=== PATIENT | female | born 1955 | race Caucasian/White ===

== ENCOUNTER → 2017-03-20 | Outpatient (CLI) | payer BC ==
--- NOTE | 2017-03-20 12:01 | CONS ---
DATE OF CONSULTATION: 03/20/2017 CONSULTATION/NEW PATIENT EVALUATION: A 61-year-old lady who has been evaluated in Sleep Center for possible obstructive sleep apnea-hypopnea syndrome. HISTORY OF PRESENT ILLNESS/SLEEP-WAKE EVALUATION: SLEEP SCHEDULE: Patient's usual sleep schedule on working days is from 7:30 a.m. until 3 p.m. 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 In the days off, she sleeps from around midnight until 9 a.m. FALLING ASLEEP: Usually she does not have any problem with falling asleep, actually in the time. No TV in bedroom. DURING SLEEP: She sleeps on the side position or stomach. She wakes up from sleep up to 3 times with nocturia and she moves from [id number] during the sleep all the time. According to her , she has loud snoring and episodes of stopped breathing during the sleep. Sometimes she wakes up with gasping for air. DURING THE DAY/WAKE STATE: After sleep, she wakes up tired. [place] Sleepiness Scale significantly increased to 16. No history hypnagogic hallucinations, sleep paralysis or cataplexy. PAST MEDICAL HISTORY: Positive for hypertension, hyperlipidemia, shoulder problems, more on the right side with feeling of numbness of her arms after sleep. PAST SURGICAL HISTORY: Status post back surgery, status post left shoulder surgery, status post cholecystectomy and status post C-sections x2 and status post heel surgery on the right foot 3 years ago. MEDICATIONS: Lovastatin, atenolol, Zestoretic, baby aspirin. SOCIAL HISTORY: Negative for smoking, alcohol consumption rarely. REVIEW OF SYSTEMS: Multiple awakenings from sleep, sleepiness during the day or night time when she is working, sometimes sleepiness while she is driving the car. FAMILY HISTORY: Hypertension, heart problems, hyperlipidemia, stroke, fibromyalgia, arthritis, sleep apnea, snoring, cancer, diabetes, anemia, mental illness, restless legs. During physical exam, lady without distress. BP 154/95, HR 76, RR 16. Height 66 inches. Weight 206.6. BMI 33.2. Neck 15 inches in circumference. Temperature 98.2. Oxygen saturation at room air 97%. Oropharynx extremely low position of soft palate, Mallampati 4. NECK: Supple. No JVD. Thyroid is not palpable. LUNGS: Clear to percussion and to auscultation. Good air exchange. No wheezing or rhonchi. HEART: S1, S2 regular. No murmurs, gallops or rubs. ABDOMEN: Soft and nontender. Bowel sounds are present. No organomegaly appreciated. SASH CLAMP OPERATOR: Awake, alert, and oriented x3. Cranial nerves 2 to 7 intact. There is no fasciculation or atrophy noted. No focal deficits observed. Extremities 1+ bilateral ankle edema. IMPRESSION: 1. Snoring, witnessed episodes of stopped breathing during the sleep, extremely low position of soft palate, sleepiness, multiple awakenings from sleep, obstructive sleep apnea-hypopnea syndrome. 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 3. Obesity; body mass index 33.2. 4. Hypertension, not on control on medications, presently blood is slightly increased during the office visit today. 5. Hyperlipidemia. 6. Status post left shoulder surgery. 7. Status post C-sections x2. 8. Status post cholecystectomy. 9. Status post back surgery. 10. Right shoulder problems. 11. Status post right foot surgery for the right heel surgery a few years ago. PLAN: 1. Home sleep apnea test for evaluation of patient's breathing during sleep. 2. CPAP/BiPAP titration if sleep study confirms obstructive sleep apnea-hypopnea syndrome. 3. Preferable position during sleep on the side. 4. No driving if patient feels any sleepiness. Patient is aware of civil and criminal liability for unsafe driving. 5. I will see patient for follow-up visit to explain results of the testing and following plan. Sincerely, Guy Krueger MD, PhD, FAASM. Diplomat of [place] [employer], Sleep Medicine Board by [place] [employer] [employer] Television Cabinet Finisher of [facility] [place]
== END ==
LOC: SLEEP 10:22
PROVIDERS: ATTEND Internal Medicine
DX: G47.33 Obstructive sleep apnea (adult) (pediatric) (principal); E66.9 Obesity, unspecified; I10 Essential (primary) hypertension; E78.5 Hyperlipidemia, unspecified; Z98.890 Other specified postprocedural states; Z90.49 Acquired absence of other specified parts of digestive tract; Z79.82 Long term (current) use of aspirin; Z79.899 Other long term (current) drug therapy; Z68.33 Body mass index [BMI] 33.0-33.9, adult
CPT/HCPCS: 99211

== ENCOUNTER → 2017-06-26 | Outpatient (CLI) | payer BC ==
--- NOTE | 2017-06-27 11:27 | PN ---
DATE OF SERVICE: 06/26/2017 A 62-year-old lady who had been followed in the Sleep Center for treatment of obstructive sleep apnea-hypopnea syndrome. Recently patient had home sleep study and CPAP titration and I discussed this also with the sleep study with the patient in detail. Recently, she was started on treatment with CPAP, able to use equipment every night for the whole night without problem. She sleeps better with the machine and feels better during the day. I checked her CPAP unit, usage is 29 out of 30 nights for more than 4 hours, averaging 7.3 hours. CPAP pressure is 6. Apnea-hypopnea index reading from the machine is 7.8. The leak is 0. MEDICATIONS: Lovastatin, atenolol, Zestoretic, baby aspirin. During physical exam, patient in no distress. BP 161/88, HR 60, RR 16, weight 205, temp 98.0, oxygen saturation at room air 96 %. OROPHARYNX: Low position of soft palpate. ABDOMEN: Slightly obese. NECK: Supple, No JVD. Thyroid is not palpable. LUNGS: Clear to percussion and to auscultation. Good air exchange. No wheezing or rhonchi. HEART: S1, s2 regular. No murmurs, gallops or rubs. EXTREMITIES: Ankles up to 1+ ankle edema. HVAC ESTIMATOR: Awake, alert, and oriented x3. Cranial nerves 2 to 7 intact. There is no fasciculation or atrophy noted. No focal deficits observed. IMPRESSION: 1. Obstructive sleep apnea-hypopnea syndrome, patient demonstrated practically 100% compliance with treatment, benefiting from treatment. 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 3. Obesity. 4. Hypertension. 5. Hyperlipidemia. 6. Status post left shoulder surgery. 7. Status post x2. 8. Status post cholecystectomy. 9. Status post back surgery. 10. Right shoulder problems. 11. Status post right foot surgery. PLAN: 1. I adjusted the CPAP unit automatic regimen in range of pressure between 6 and 11 cm of water. Patient should continue to use her equipment very night for the while night. 2. Losing weight, sleep hygiene very good time in bed for least 8 hours. 3. No driving if feeling sleepiness. Thank you very much for allowing me to participate in the management of your patient. Sincerely, Guy Krueger MD, PhD, FAASM. Diplomat of [place] Board [employer] Medicine, Sleep Medicine Board by [place] [employer] Special[employer] [employer] Chief Resource Officer of [facility] [place] RAEANN
== END | disposition home or self-care (01) ==
LOC: SLEEP 16:47
PROVIDERS: ATTEND Internal Medicine
DX: G47.33 Obstructive sleep apnea (adult) (pediatric) (principal); E66.9 Obesity, unspecified; I10 Essential (primary) hypertension; E78.5 Hyperlipidemia, unspecified; Z98.890 Other specified postprocedural states; Z79.899 Other long term (current) drug therapy; Z79.82 Long term (current) use of aspirin

== ENCOUNTER → 2018-01-01 | Outpatient (CLI) | payer BC ==
--- NOTE | 2018-01-01 12:00 | PN ---
PROGRESS NOTE DATE OF SERVICE: 01/01/2018 A 62-year-old lady who has been followed in Sleep Center for treatment of moderate obstructive sleep apnea-hypopnea syndrome. Apnea-hypopnea index during diagnostic sleep study, which was done at home and could be seen with some underestimation of patient breathing problem 23.4, and during this test, the patient had 25 central apneas. Apnea-hypopnea index for the last night only 2.4. Recently patient was started on treatment with CPAP pressure of 6 cm of water. With that pressure, apnea-hypopnea index was 7.8, and when I saw patient for first visit, I changed regimen of her machine to the automatic range of pressure between 5 and 11. Today, she came for followup visit. She continued to use her machine. She feels better with the usage of her machine then without machine. [place] Sleepiness Scale today is 6. Sometimes she experiences some discomfort in her chest while using the machine. I checked CPAP unit. Usage is 24/30 nights for more than 4 hours. Average usage is 6.8 hours. No leak at all. Leak is 0 L/minute. CPAP pressure in the machine is 10.0. Apnea-hypopnea index reading from the machine is 9.8 with central apnea index 6.3. MEDICATIONS: Lovastatin, atenolol, Zestoretic, baby aspirin. PHYSICAL EXAM: Patient in no distress, BP 151/92, HR 77, RR 16, height 5, 5-1/3, weight 206.4, which is 1 pound more than during previous visit, BMI 33.7, temperature 97.6, oxygen saturation at room air 97%. OROPHARYNX: Extremely low position of soft palate. ABDOMEN: Slightly obese. EXTREMITIES: 1+ ankle edema. Neck Supple, no JVD. Thyroid is not palpable. LUNGS Clear to percussion and to auscultation. Good air exchange. No wheezing or rhonchi. HEART S1, S2 regular. No murmurs, gallops, or rubs. THEORETICAL PHYSICIST Awake, alert, and oriented X3. Cranial nerves 2 to 7 intact. There is no fasciculation or atrophy. noted. No focal deficits observed. IMPRESSION: 1. Obstructive sleep apnea-hypopnea syndrome with some central apneas, improved on treatment with CPAP. Patient demonstrated great compliance with treatment benefitting from treatment. At the same time, patient continued to have mild respiratory abnormalities, mostly related to central apneas while on treatment with CPAP, at a average pressure of 10 cm of water to night. 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 3. Obesity. 4. Hypertension. 5. Hyperlipidemia. 6. Status post left shoulder surgery. 7. Status post x2. 8. Status post cholecystectomy. 9. Status post back surgery. 10.Right shoulder problem. 11.Status post right foot surgery. PLAN: 1. I will decrease pressure down to 5 cm of water. 2. Patient will continue to use her equipment every night for the whole night. 3. Sleep hygiene with regular time in bed for at least 7-1/2 hours. 4. No driving if feeling any sleepiness. Thank you very much for allowing me to participate in the treatment of your patient. Sincerely, Guy Krueger MD, PhD, FAASM Diplomat of [place] [employer] Specialties [place] Board of Internal Medicine Contract Clerk [employer] of [facility] [place] MMDOLORESL / ALBERTINAN: [id number] /
== END | disposition home or self-care (01) ==
LOC: SLEEP 09:55
PROVIDERS: ATTEND Internal Medicine
DX: G47.33 Obstructive sleep apnea (adult) (pediatric) (principal); E66.9 Obesity, unspecified; I10 Essential (primary) hypertension; E78.5 Hyperlipidemia, unspecified; Z98.890 Other specified postprocedural states; Z90.49 Acquired absence of other specified parts of digestive tract; Z79.899 Other long term (current) drug therapy; Z99.89 Dependence on other enabling machines and devices; Z79.82 Long term (current) use of aspirin

== ENCOUNTER → 2019-03-30 | Outpatient (CLI) | payer BC ==
--- NOTE | 2019-03-30 22:34 | MR ---
EXAMINATION TYPE: MR brain wo/w con DATE OF EXAM: 03/30/2019 COMPARISON: NONE HISTORY: New daily persistent headache TECHNIQUE: Multiplanar, multisequence images of the brain and brainstem is performed without and with IV contras t, utilizing 9 mL intravenous Gadavist . FINDINGS: Diffusion weighted images demonstrate no evidence of a recent infarct or other diffusion ab normality. There is no worrisome extra-axial fluid collection. There is diffuse ventricular and sulc al prominence. There are scattered foci of T2 hyperintensity seen throughout the superficial, deep, a nd periventricular white matter. Some are confluent in appearance making it difficult to accurately c ount. Estimated over 80 lesions are present. Midline structures demonstrate normal morphology. The craniocervical junction appears within normal limits. Post contrast images demonstrate no abnormal enhancement. The dural venous sinuses appear pa tent. The globes are distorted by artifact bilaterally. Mild mucosal thickening involving anterior et hmoid sinuses bilaterally. IMPRESSION: There is mild diffuse cerebral atrophy and advanced nonspecific white matter changes may be a combination of product of chronic small vessel ischemic change and altered vascular mechanics re lated to migraine headaches.
== END | disposition home or self-care (01) ==
LOC: RADMRIMAIN 15:51
PROVIDERS: ATTEND Internal Medicine
DX: G31.9 Degenerative disease of nervous system, unspecified (principal); R90.82 White matter disease, unspecified
CPT/HCPCS: 70553; A9585

== ENCOUNTER 2020-08-04 09:28 | Day surgery (SDC) | payer BC ==
[2020-07-31 16:59] VITALS: BMI 31.3
[~2020-08-04 09:28] MED LIST: DEXAMETHASONE SOD PHOSPHATE 10 MG/ML 1 ML VIAL IV ONE; LACTATED RINGERS 1,000 ML IV SCH; MIDAZOLAM 2 MG/2 ML VIAL IV PRN; ONDANSETRON 4 MG/2 ML VIAL IVP ONE; SCOPOLAMINE 1.5MG/72HR PATCH TRANSDERM ONE; fentaNYL (PF) 50 MCG/ML 2 ML AMP IV PRN
[2020-08-04] MEDS ORDERED: LIDOCAINE 1% (10MG/ML) FOR IV START INTRADERMA ONE (10:00)
[2020-08-04] MEDS ORDERED: LIDOCAINE 1%-EPI 1:100,000 20 ML VIAL SQ ONE ×3 (11:33)
[2020-08-04] MEDS ORDERED: LACTATED RINGERS 1,000 ML IV ONE (12:02)
[2020-08-04 12:22] VITALS: TEMP 97.7
[2020-08-04 13:32] VITALS: BP 136/69; PULSE 89; RESP 18
--- NOTE | 2020-08-13 12:32 | P.OP ---
Date of Procedure: 08/04/20 Preoperative Diagnosis: Left carpal tunnel syndrome Postoperative Diagnosis: Left carpal tunnel syndrome Procedure(s) Performed: Left endoscopic carpal tunnel release Anesthesia: MAC, local Surgeon: Td Vasquez Estimated Blood Loss (ml): 1 Condition: stable Disposition: PACU Indications for Procedure: The patient is a pleasant 65-year-old female who was diagnosed with bilateral carpal tunnel syndrome and previously underwent release of her right hand. She returned with persistent left-sided symptoms. Treatment options (and associated risks and benefits) were discussed in the office; the patient elected to undergo surgical release for the left hand as well. In preop, additional questions were addressed and the patient wished to proceed with surgery. Consent forms were signed. The operative site was confirmed and marked in preop. Description of Procedure: The patient was positioned supine with the left arm on a hand table. A tourniquet was applied. Anesthesia was administered uneventfully. A time-out was performed, confirming patient identifiers, the operative side, site and the procedure to be performed: all team members expressed agreement. Using aseptic technique, local anesthetic was injected into the subcutaneous tissues around the planned incision. The left upper extremity was then prepped and draped in standard, sterile fashion. The limb was exsanguinated with an Esmarch and the tourniquet was inflated. Loupe magnification was used throughout the case for optimum visualization. A 1.5 cm transverse incision was marked proximal to the wrist flexion crease, in line with the radial border of the ring finger. The skin was sharply incised and the subcutaneous tissues were bluntly spread. The volar carpal fascia was identified and sharply incised in line with the path of the nerve. The median nerve was visualized below. Attempts to insert a synovial elevator demonstrated tethering against the nerve. A [place] was used to gently release the perineural adhesions. The synovial elevator was reinserted and passed easily. This was used to clear the underside of the transverse carpal ligament and release any remaining adhesions. The washboard effect was palpable. A dilator was inserted to sound and enlarge the carpal tunnel, which was noted to be somewhat radial. The hamate hook was palpable ulnarly. The side-specific guide and camera were inserted. The transverse carpal ligament was clearly visualized above. The distal edge of the ligament was identified and palpated with a probe. It was rather short but quite thick. A rasp was used to clear the remaining synovial adhesions. The endoscopic blade was inserted and the distal half of the ligament was sharply incised. Residual distal transverse fibers were released and then the proximal portion of the ligament was divided. Wide release of ligament was visually confirmed. The camera and guide were removed. Proximal to the incision, the volar carpal/antebrachial fascia was released with scissors under direct visualization. After release, the nerve demonstrated focal compression from some thickened overlying perineural tissue around the level of the incision. A limited local external neurolysis of the median nerve was performed which improved the mobility of the nerve. The tourniquet was released after 21 minutes at 150 mmHg. Mild bleeding was controlled with briefly held manual pressure and excellent hemostasis was obtained. The wound was thoroughly irrigated with normal saline. The incision was closed with interrupted 4-0 Nylon sutures. Additional local anesthetic with epinephrine was injected for adjunct postoperative pain control and hemostasis. A soft, sterile dressing was applied. All sponge, needle and instrument counts were correct at the end of the case. The patient tolerated the procedure well and was transferred to recovery in stable condition.
== END 2020-08-04 14:10 | disposition home or self-care (01) ==
LOC: OR 09:28
PROVIDERS: ATTEND Orthopaedic Surgery
DX: G56.02 Carpal tunnel syndrome, left upper limb (principal); I10 Essential (primary) hypertension; G47.33 Obstructive sleep apnea (adult) (pediatric); Z99.89 Dependence on other enabling machines and devices; Z88.5 Allergy status to narcotic agent; Z79.82 Long term (current) use of aspirin; Z79.899 Other long term (current) drug therapy; E78.5 Hyperlipidemia, unspecified; Z97.3 Presence of spectacles and contact lenses; Z98.890 Other specified postprocedural states; Z82.49 Family history of ischemic heart disease and other diseases of the circulatory system; Z83.3 Family history of diabetes mellitus; Z98.891 History of uterine scar from previous surgery; Z90.49 Acquired absence of other specified parts of digestive tract
CPT/HCPCS: 29848; J1100; J0690; J2405

== ENCOUNTER → 2021-01-17 | Outpatient (CLI) | payer BC ==
--- NOTE | 2021-01-17 21:02 | CONS ---
CONSULTATION DATE OF SERVICE: 01/17/2021 This 65-year-old lady has been re-evaluated in Sleep Center for obstructive sleep apnea- hypopnea syndrome. The last time I saw this patient was more than 3 years ago. The patient continues to use her CPAP equipment every night. At present her sleep schedule is from 8 p.m. to 4 a.m. on the days when she is working, and from 1 a.m. until 10 a.m. on days off. No problems with falling asleep. No TV in bedroom. But while she is using the machine, the patient feels that the pressure in the machine is not enough while she is on the back position. She is trying to stay on the side, because in that position she sleeps well. She wakes up from sleep 1 to 2 times with nocturia. No snoring, according to the patient. Positive history of restless legs. No history of hypnagogic hallucinations, sleep paralysis or cataplexy. [place] Sleepiness Scale today is 7, which is in normal range. PAST MEDICAL HISTORY: Hypertension, hyperlipidemia. PAST SURGICAL HISTORY: Left shoulder surgery, x2, cholecystectomy, back surgery, shoulder problems, status post right foot surgery. MEDICATIONS: Medication for blood pressure; the patient does not remember the name. She takes it twice a day. SOCIAL HISTORY: Negative for smoking or using alcohol. FAMILY HISTORY: Hypertension, heart problems, stroke, diabetes, mental illness, arthritis. REVIEW OF SYSTEMS: Some difficulties breathing while she sleeps on the back. PHYSICAL EXAMINATION: GENERAL: A pleasant patient in no distress. VITAL SIGNS: BP 180/84, HR 66, RR 12, height 5 feet 6-1/2 inches, weight 210, body mass index 33.3, temperature 97.1. Oxygen saturation at room air 98%. HEENT: PERRLA, EOMI. Evaluation of oropharynx showed tongue protrudes midline. Extremely low position of soft palate. Mallampati IV. NECK: Supple. No JVD. Thyroid is not palpable. Wide neck; neck measures 16 inches in circumference. LUNGS: Clear to percussion and to auscultation. Good air exchange. No wheezing or rhonchi. HEART: S1, S2 regular. No murmurs, gallops or rubs. ABDOMEN: Slightly obese. EXTREMITIES: No clubbing or cyanosis. PROVIDER RELATIONS SPECIALIST: Awake, alert, and oriented X3. Cranial nerves 2 to 7 intact. There is no fasciculation or atrophy. noted. No focal deficits observed. I checked the patient's CPAP unit. CPAP pressure is 5 cm of water. Usage is 30/30 nights for more than 4 hours with average usage 7.9 hours per night. Leak is zero liters/minute. Apnea-hypopnea index 3.3, which is in normal range. IMPRESSION: 1. Obstructive sleep apnea-hypopnea syndrome. Patient demonstrated 100% compliance with treatment, benefitting from treatment. She feels that she has difficulties breathing while she is on the back position. 2. Obesity. BMI 33.3. 3. Hypertension. Blood pressure was increased today in the office; not under good control with medication. 4. Hyperlipidemia. 5. Status post left shoulder surgery. 6. Status post x2. 7. Status post cholecystectomy. 8. Status post back surgery. 9. Status post right foot surgery. 10.History of right shoulder problems. PLAN: 1. I changed the regimen of her machine to automatic with range of the pressure 5 to 11 cm of water. 2. Continue to use CPAP equipment every night for the whole night. 3. Watching and losing weight. 4. Sleep hygiene with regular time in bed for 7-1/2 to 8 hours. 5. No driving if feeling sleepiness. 6. Follow-up visit in 6 months or earlier if patient has any problems. Thank you very much for allowing me to participate in the management of your patient. Sincerely, Guy Krueger MD, PhD, FAASM Diplomat of [place] [employer]ties [place] Board [employer] Internal Medicine Assistant Auditor of [facility] [place] MMODL / ANTONIO: [id number] /
== END ==
CPT/HCPCS: 99211

== ENCOUNTER → 2021-07-26 | Outpatient (CLI) | payer BC ==
--- NOTE | 2021-07-26 21:10 | SFUN ---
SLEEP CENTER FOLLOW UP NOTE DATE OF SERVICE: 07/26/2021 66-year-old lady has been followed in Sleep Center for treatment of obstructive sleep apnea-hypopnea syndrome. Patient continued to use her CPAP equipment every night. Sometimes she feels that she has difficulties to breathe with awakenings while using her CPAP equipment. Feels that maybe not enough pressure in the machine. [place] Sleepiness Scale today is 6 which is totally normal. I checked her CPAP unit. Range of the pressure 5-11. Usage is 30/30 nights for more than 4 hours. Average usage 7.7 hours per night. No leak at 0 L/minute. Apnea- hypopnea index only 2.9 which is totally normal. MEDICATIONS: Zestoretic 10-12.5 mg once a day, metoprolol once a day, aspirin 81 mg once a day. PHYSICAL EXAMINATION: GENERAL: lady without distress. BP 147/85. HR 76, RR . Height 5 feet 6 inches. Weight 217.8, body mass index 35.8, temperature 97.7. The patient increased her weight on 7 pounds since previous visit. Oropharynx showed extremely low position of soft palate, Mallampati IV. NECK: Supple, no JVD. Thyroid is not palpable. LUNGS: Clear to percussion and to auscultation. Good air exchange. No wheezing or rhonchi. HEART: S1, S2 regular. No murmurs, gallops, or rubs. ABDOMEN: Obese. Soft and nontender. Bowel sounds are present. No organomegaly appreciated. EXTREMITIES: No clubbing or cyanosis. DRILL PUNCH OPERATOR: Awake, alert, and oriented X3. Cranial nerves 2 to 7 intact. There is no fasciculation or atrophy. noted. No focal deficits observed. IMPRESSION: 1. Obstructive sleep apnea-hypopnea syndrome. Patient demonstrated 100% compliance with treatment benefitting from treatment. Still has episodes of gasping for air while using the machine. 2. Obesity. Body mass index 35.8. 3. Hypertension. 4. Hyperlipidemia. 5. Status post left shoulder surgery. 6. Status post x2. 7. Status post cholecystectomy. 8. Status post back surgery. 9. History of right shoulder problems. 10.Status post right foot surgery. PLAN: 1. I again increased pressure in the machine, range of the pressure 5-15 cm of water. 2. Patient will continue to use PAP equipment every night for the whole night. 3. Sleep hygiene with regular time in bed for at least 7-1/2 to 8 hours. 4. Precautions related to driving. No driving if feeling sleepiness. 5. I will maintain all necessary prescription for PAP supplies including mask, tube, filters. 6. Watching weight. 7. Follow-up visit in 6 months or earlier if patient has any problems. Thank you very much for allowing me to participate in the management of your patient. Sincerely, Guy Krueger MD, PhD, FAASM Diplomat of [place] [employer] Specialties Sleep Medicine Board of [place] Board of Internal Medicine Magazine Repairer of [facility] [place] MMODL / IJN: [id number] /
== END ==
LOC: SLEEP 16:00
PROVIDERS: ATTEND Internal Medicine
DX: G47.33 Obstructive sleep apnea (adult) (pediatric) (principal); E66.9 Obesity, unspecified; I10 Essential (primary) hypertension; E78.5 Hyperlipidemia, unspecified; Z68.35 Body mass index [BMI] 35.0-35.9, adult; Z98.891 History of uterine scar from previous surgery; Z90.49 Acquired absence of other specified parts of digestive tract; Z87.39 Personal history of other diseases of the musculoskeletal system and connective tissue; Z98.890 Other specified postprocedural states; Z79.899 Other long term (current) drug therapy; Z88.5 Allergy status to narcotic agent

== ENCOUNTER → 2021-10-29 | Outpatient (CLI) | payer MEDICARE ==
--- NOTE | 2021-10-29 11:20 | XR ---
EXAMINATION TYPE: XR chest 2V DATE OF EXAM: 10/29/2021 COMPARISON: None INDICATION: Cough TECHNIQUE: Frontal and lateral views of the chest are obtained. FINDINGS: The heart size is normal. The pulmonary vasculature is normal. The lungs are clear. IMPRESSION: 1. No acute pulmonary process.
== END | disposition home or self-care (01) ==
LOC: RADXRYALE 10:46
PROVIDERS: ATTEND Internal Medicine
DX: R05.9 Cough, unspecified (principal)
CPT/HCPCS: 71046

== ENCOUNTER → 2021-12-24 | Outpatient (CLI) | payer MEDICARE ==
--- NOTE | 2021-12-24 15:26 | XR ---
EXAMINATION TYPE: XR ankle complete 3 views LT DATE OF EXAM: 12/24/2021 Comparison: None Clinical History: 66-year-old female LLE M25.572 Findings: Prominent bony spurring at the medial malleolus. Findings could reflect sequela of prior injury to th e deltoid ligament or posterior tibial tendon dysfunction. Ankle mortise is congruent with preservati on of the distal tibiofibular overlap. Prominent dorsal mid foot degenerative spurring at the navicular cuneiform joint. Small posterior and plantar heel spurs. Ossific densities along the hindfoot plantar soft tissues sug gesting sequela of old injury to the plantar fascia. Additional ossification along the plantar ligame nts of the hindfoot. Ossific densities medial aspect of the navicular on the AP and oblique views. No additional acute fracture, subluxation, dislocation otherwise seen. Impression: 1. Ossific densities medial navicular on the AP and oblique views suggest age indeterminate injury at the posterior tibial tendon or spring ligament insertion. Clinically correlate. 2. Bony spurring medial margin of the medial malleolus could reflect old injuries to the deltoid liga ment versus sequela of chronic posterior tibial tendon dysfunction. 3. Sequela of old injuries to the plantar fascia. 4. Dorsal mid foot degenerative spurring. 5. Otherwise, no acute osseous abnormality seen.
--- NOTE | 2021-12-24 15:27 | US ---
EXAMINATION TYPE: US venous doppler duplex LE LT DATE OF EXAM: 12/24/2021 3:00 PM COMPARISON: NONE CLINICAL HISTORY: 66-year-old female LLE M25.572. SIDE PERFORMED: Left TECHNIQUE: The lower extremity deep venous system is examined utilizing real time linear array sonog josh with graded compression, doppler sonography and color-flow sonography. VESSELS IMAGED: Common Femoral Vein Deep Femoral Vein Greater Saphenous Vein * Femoral Vein Popliteal Vein Small Saphenous Vein * Proximal Calf Veins (* superficial vessels) Left Leg: Negative for DVT Preliminary results given to Elidia at Dr. Austin's office. IMPRESSION: No evidence for DVT within the left lower extremity imaged from the groin to the upper calf.
== END | disposition home or self-care (01) ==
LOC: RADUSWWP 14:29
PROVIDERS: ATTEND Internal Medicine
DX: M25.772 Osteophyte, left ankle (principal)

== ENCOUNTER → 2022-01-23 | Outpatient (CLI) | payer MEDICARE ==
--- NOTE | 2022-01-23 19:31 | SFUN ---
SLEEP CENTER FOLLOW UP NOTE DATE OF SERVICE: 01/23/2022 66-year-old lady has been followed in Sleep Center for treatment of obstructive sleep apnea-hypopnea syndrome. Patient continues to use her CPAP equipment every night for the whole night. According to patient, she cannot sleep without CPAP. At the beginning of the night while she is falling asleep and if she is on the back position, she may feel difficulties to breathe. [place] Sleepiness Scale today is 9. I checked her CPAP unit. Pressure is 5-15 cm of water. Ramp is 30 minutes. Average CPAP pressure 10.1 cm of water. Usage is 30/30 nights for more than 4 hours, average 8.3 hours per night. No leak at all L/minute. Apnea-hypopnea index is 2.4 which is normal. Possibly patient has difficulties to breathe because at the beginning of the night when the pressure in the machine is low, it may not be enough for correction of respiratory abnormalities. CURRENT MEDICATIONS: Metoprolol 50 mg twice a day, Zestoretic 10-12.5 mg twice a day, aspirin 81 mg once a day. PHYSICAL EXAMINATION: GENERAL: Patient in no distress. BP 142/75, HR 79, RR 16, weight 218.2. Height 5 feet 6 inches, temperature 97.6, oxygen saturation at room air 97%. Oropharynx: Extremely low position of soft palate, Mallampati 4. NECK: Supple, no JVD. Thyroid is not palpable. LUNGS: Clear to percussion and to auscultation. Good air exchange. No wheezing or rhonchi. HEART: S1, S2 regular. No murmurs, gallops, or rubs. ABDOMEN: Soft and nontender. Bowel sounds are present. No organomegaly appreciated. EXTREMITIES: No clubbing or cyanosis. PRECIPITATE WASHER: Awake, alert, and oriented X3. Cranial nerves 2 to 7 intact. There is no fasciculation or atrophy. noted. No focal deficits observed. IMPRESSION: 1. Obstructive sleep apnea-hypopnea syndrome. Patient demonstrated great compliance with treatment, benefitting from treatment, possibly not sufficient pressure at the first moment when the patient started using CPAP at night. 2. Obesity. 3. Hypertension. 4. Hyperlipidemia. 5. Status post left shoulder surgery. 6. Status post x2. 7. Status post cholecystectomy. 8. Status post back surgery. 9. History of right shoulder problems. 10.Status post right foot surgery. PLAN: 1. I adjusted ramp to start from 7 cm of water instead of 4 cm of water, ramp time 15 minutes. 2. I changed regimen of automatic pressure to 8-15 cm of water. 3. Patient will continue to use PAP equipment every night for the whole night. 4. Sleep hygiene with regular time in bed for at least 7-1/2 to 8 hours. 5. Precautions related to driving. No driving if feeling sleepiness. 6. I will maintain all necessary prescription for PAP supplies including mask, tube, filters. 7. Watching weight. 8. Follow-up visit in 6 months or earlier if patient has any problems. Thank you very much for allowing me to participate in management of your patient. Sincerely, Guy Krueger MD, PhD, FAASM Diplomat of [employer] [employer] Sleep Medicine Board of [place] [employer] Lobster Catcher of [facility] [place] MMODL / ALBERTINAN: [id number] /
== END ==
LOC: SLEEP 13:51
PROVIDERS: ATTEND Internal Medicine
DX: G47.33 Obstructive sleep apnea (adult) (pediatric) (principal); I10 Essential (primary) hypertension; E78.5 Hyperlipidemia, unspecified; Z98.890 Other specified postprocedural states; Z87.59 Personal history of other complications of pregnancy, childbirth and the puerperium; Z99.89 Dependence on other enabling machines and devices; Z90.49 Acquired absence of other specified parts of digestive tract; Z88.5 Allergy status to narcotic agent

== ENCOUNTER → 2022-09-11 | Outpatient (CLI) | payer MEDICARE ==
--- NOTE | 2022-09-11 13:42 | P.PN ---
Subjective DATE: 09/11/2022 FOLLOW UP VISIT. Patient with obstructive sleep apnea hypopnea syndrome return to sleep center for follow-up visit. Information from previous visit have been reviewed. Patient had some problems related to sleep after she had right knee replacement which happened in July of this year. But now she is better, using her CPAP equipment every night for the whole night The patient does not have significant problems with the mask, PAP unit and humidification. [place] sleepiness scale is 3. I checked information from PAP unit. PAP unit pressure 8-15, average 11 cm H2O. Usage is 100 % for more then 4 hours, average 8.7 hours per night. Leak is 6 l/m, which is in acceptable range. Apnea Hypopnea Index is 2.9, which is normal. MEDICATIONS:1. Lisinoprilhydrochlorothiazide 1012.5 mg twice a day 2. Metoprolol 50 mg twice a day 3. Aspirin 81 mg once a day During physical exam: GENERAL: A pleasant patient without any distress. VITAL SIGNS: BP 146/85, HR 72, RR 16 , weight 211, temperature 98.3, oxygen saturation at room air 95 % . HEENT: PERRLA, EOMI.low position of soft palate, Mallapati 4 . NECK: Supple. No JVD. LUNGS: Clear to percussion and to auscultation. Good air exchange. No wheezing or rhonchi. HEART: S1, S2 regular. ABDOMEN: Soft and nontender. Obese EXTREMITIES: No clubbing or cyanosis. COTA: Awake, alert, and oriented x3. No focal deficit. Impressions: 1. Obstructive sleep apnea-hypopnea syndrome. Patient demonstrated great compliance with treatment, benefiting from treatment. 2. 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 3. Obesity. 4. Hypertension. 5. Hyperlipidemia. 6. Status post . 7. Status post cholecystectomy. Plan: 1. Continue using PAP equipment every night for the whole night. 2. To change air filter at least 1-2 times per month. 3. PAP unit should stay lower then position of the head. 4. Advised patient to remove all remaining water from humidifier canister daily and make it dry after each usage. Refill canister with fresh distilled water before each usage. 5. Sleep hygiene with regular time in bed for at least 8 hours. 6. Precautions related to driving. No driving if feel any sleepiness. 7. I will maintain prescription for PAP supplies including mask, tube, filters. 8. Follow up visit in 6 months or earlier if patient has any problems. 9. Watching and losing weight. Thank you very much for allowing me to participate in the management of your patient. Guy Krueger MD, PhD, FAASM. Diplomat of [employer], Sleep Medicine Board by [employer] [facility] [place]
== END | disposition home or self-care (01) ==
LOC: SLEEP 13:04
PROVIDERS: ATTEND Internal Medicine
DX: Z53.9 Procedure and treatment not carried out, unspecified reason (principal)

== ENCOUNTER → 2022-11-25 | Outpatient (CLI) | payer MEDICARE ==
--- NOTE | 2022-11-25 09:25 | US ---
EXAMINATION TYPE: US abdomen limited DATE OF EXAM: 11/25/2022 COMPARISON: NONE CLINICAL HISTORY: R94.5 abn liver functions. Abn function test gallbladder removed TECHNIQUE: Multiple sonographic images of the right upper quadrant are obtained. FINDINGS: EXAM MEASUREMENTS: Liver Length: 18.8 cm Gallbladder Wall: Surgically absent CBD: .7 cm Right Kidney: 12.78 x 4.4 x 5.3 cm SENIOR MARKETING SPECIALIST NOTES: Pancreas: wnl Liver: Increased attenuation Gallbladder: Surgically absent Evidence for sonographic Rodgers's sign: No CBD: wnl Right Kidney: wnl Heterogeneous hyperechoic appearance of the liver which is enlarged in size. No adjacent ascites. Lisa luation for focal masses suboptimal due to the heterogeneity. No biliary dilatation. Gallbladder surg ically absent. No right-sided hydronephrosis. IMPRESSION: Hepatomegaly with heterogeneous hyperechoic appearance of liver consistent with diffuse f atty infiltration and/or underlying hepatocellular disease noted.
== END | disposition home or self-care (01) ==
LOC: RADUSWWP 08:10
PROVIDERS: ATTEND Internal Medicine
DX: K76.89 Other specified diseases of liver (principal); R16.0 Hepatomegaly, not elsewhere classified; R94.5 Abnormal results of liver function studies
CPT/HCPCS: 76705

== ENCOUNTER → 2023-07-16 | Outpatient (CLI) | payer MEDICARE ==
--- NOTE | 2023-07-16 14:08 | P.PN ---
Subjective DATE: 07/16/2023 FOLLOW UP VISIT. Patient with obstructive sleep apnea hypopnea syndrome return to sleep center for follow-up visit. Information from previous visit have been reviewed. Patient is using PAP equipment every night for the whole night, getting PAP supplies in time. The patient does not have significant problems with the mask, PAP unit and humidification. [place] sleepiness scale is 6 which is normal. I checked information from PAP unit. PAP unit pressure 8-14, average 10.1 cm H2O. Usage is 93 % for more then 4 hours, average 8.3 hours per night. Leak is 8.0 l/m, which is in acceptable range. Apnea Hypopnea Index is 3.2, which is normal. MEDICATIONS:1. Rosuvastatin 10 mg once a day 2. Metoprolol 50 mg twice a day 3. Zestoretic 10-12.5 mg twice a day 4. Aspirin 81 mg once a day 5. Jardiance During physical exam: GENERAL: A pleasant patient without any distress. VITAL SIGNS: BP 130/82, HR 70, RR 12 , weight 204.8, temperature 97.5, oxygen saturation at room air 96 % . HEENT: PERRLA, EOMI.low position of soft palate, Mallapati 4 . NECK: Supple. No JVD. LUNGS: Clear to percussion and to auscultation. Good air exchange. No wheezing or rhonchi. HEART: S1, S2 regular. ABDOMEN: Soft and nontender.[] EXTREMITIES: No clubbing or cyanosis. MULE RIDER: Awake, alert, and oriented x3. No focal deficit. Impressions: 1. Obstructive sleep apnea-hypopnea syndrome. Patient demonstrated great compliance with treatment, benefiting from treatment. 2. Hypertension. 3. Obesity BMI 32.9. 4. Hyperlipidemia. 5. Status post the knee replacement. 6. Status post cholecystectomy. Plan: 1. Continue using PAP equipment every night for the whole night. 2. To change air filter at least 1-2 times per month. 3. PAP unit should stay lower then position of the head. 4. Advised patient to remove all remaining water from humidifier canister daily and make it dry after each usage. Refill canister with fresh distilled water before each usage. 5. Sleep hygiene with regular time in bed for at least 8 hours. 6. Precautions related to driving. No driving if feel any sleepiness. 7. I will maintain prescription for PAP supplies including mask, tube, filters. 8. Follow up visit in 6 months or earlier if patient has any problems. 9. Watching weight. Thank you very much for allowing me to participate in the management of your patient. Guy Krueger MD, PhD, FAASM. Diplomat of [place] [employer] Medicine, Sleep Medicine Board by [place] [employer] Catering Truck Driver of [facility] [place]
== END ==
LOC: 3 N SLEEP 13:30
PROVIDERS: ATTEND Internal Medicine
DX: G47.33 Obstructive sleep apnea (adult) (pediatric) (principal); E66.9 Obesity, unspecified; E78.5 Hyperlipidemia, unspecified; I10 Essential (primary) hypertension; Z68.32 Body mass index [BMI] 32.0-32.9, adult; Z79.899 Other long term (current) drug therapy; Z90.49 Acquired absence of other specified parts of digestive tract; Z96.659 Presence of unspecified artificial knee joint; Z99.89 Dependence on other enabling machines and devices; Z88.5 Allergy status to narcotic agent
CPT/HCPCS: 99212

== ENCOUNTER → 2023-10-07 | Outpatient (CLI) | payer MEDICARE ==
[2023-10-08 01:43] LABS: Basophils # (A) 0.04 X 10*3/uL (0.00-0.10); Basophils % (A) 0.6 %; Eosinophils # (A) 0.22 X 10*3/uL (0.04-0.35); Eosinophils % (A) 3.4 %; HCT 42.4 % (37.2-46.3); HGB 13.6 g/dL (12.0-15.0); Immature Grans, Automated 0 %; Lymphocytes # (A) 1.45 X 10*3/uL (0.90-5.00); Lymphocytes % (A) 22.7 %; MCH 29.4 pg (27.0-32.0); MCHC 32.1 g/dL (32.0-37.0); MCV 91.8 FL (80.0-97.0); Mean Platelet Volume 10.7 FL (9.5-12.2); Monocytes # (A) 0.64 X 10*3/uL (0.20-1.00); NRBC Per 100 WBC 0 X 10*3/uL (0.00-0.01); Neutrophils # (A) 4.05 X 10*3/uL (1.80-7.70); Neutrophils % (A) 63.3 %; Platelet Count 214 X 10*3/uL (140-440); RBC 4.62 X 10*6/uL (4.10-5.20); RDW 13.7 % (11.5-14.5)
[2023-10-08 02:13] LABS: ALT 22 U/L (8-44); AST 21 U/L (13-35); Albumin 4.1 g/dL (3.8-4.9); Albumin/Globulin Ratio 1.64 Ratio (1.60-3.17); Alkaline Phosphatase 67 U/L (41-126); BUN/Creat Ratio 17.29 Ratio (12.00-20.00); Blood Urea Nitrogen 12.1 mg/dL (9.0-27.0); Calcium 9.5 mg/dL (8.7-10.3); Carbon Dioxide 28.4 mmol/L (21.6-31.8); Chloride 103 mmol/L (96-109); Globulin 2.5 g/dL (1.6-3.3); Glucose 111 mg/dL (70-110); Potassium 4.1 mmol/L (3.5-5.5); Sodium 142 mmol/L (135-145); Total Bilirubin 0.5 mg/dL (0.3-1.2); Total Protein 6.6 g/dL (6.2-8.2)
== END | disposition home or self-care (01) ==
LOC: LABWHC1 15:21
PROVIDERS: ATTEND Internal Medicine Gastroenterology
DX: R74.8 Abnormal levels of other serum enzymes (principal)
CPT/HCPCS: 36415; 80053; 85025

== ENCOUNTER → 2024-01-21 | Outpatient (CLI) | payer MEDICARE ==
--- NOTE | 2024-01-21 17:49 | P.PN ---
Objective - Vital Signs Vital signs: Intake & Output 01/20/24 01/21/24 01/21/24 18:59 06:59 18:59 Weight 100.244 kg Assessment and Plan Plan: DATE: 01/21/2024 FOLLOW UP VISIT. Patient with obstructive sleep apnea hypopnea syndrome return to sleep center for follow-up visit. Information from previous visit have been reviewed. Patient is using PAP equipment every night for the whole night, getting PAP supplies in time. The patient does not have significant problems with the mask, PAP unit and humidification. [place] sleepiness scale is 7. I checked information from PAP unit. PAP unit pressure 8-14, average 9.8 cm H2O. Usage is 97% for more then 4 hours, average 7.75 hours per night. Leak is 5.6 l/m, which is in acceptable range. Apnea Hypopnea Index is 3.6, which is normal. MEDICATIONS:1. Pioglitazone 45 mg once a day During physical exam: GENERAL: A pleasant patient without any distress. VITAL SIGNS: BP 115/75, HR 70, RR 16, weight 221, temperature 97.9, oxygen saturation at room air 97% . HEENT: PERRLA, EOMI.low position of soft palate, Mallapati 4 . NECK: Supple. No JVD. LUNGS: Clear to percussion and to auscultation. Good air exchange. No wheezing or rhonchi. HEART: S1, S2 regular. ABDOMEN: Soft and nontender.[] EXTREMITIES: No clubbing or cyanosis. DOWEL POINTER: Awake, alert, and oriented x3. No focal deficit. Impressions: 1. Obstructive sleep apnea-hypopnea syndrome. Patient demonstrated great com pliance with treatment, benefiting from treatment. 2. Obesity, BMI 36.2, patient increased weight on 17 pounds comparing with previous visit. 3. Hypertension. 4. Hyperlipidemia. 5. Status post knee replacement. 6. Status post cholecystectomy. Plan: 1. Continue using PAP equipment every night for the whole night. 2. To change air filter at least 1-2 times per month. 3. PAP unit should stay lower then position of the head. 4. Advised patient to remove all remaining water from humidifier canister daily and make it dry after each usage. Refill canister with fresh distilled water before each usage. 5. Sleep hygiene with regular time in bed for at least 8 hours. 6. Precautions related to driving. No driving if feel any sleepiness. 7. I will maintain prescription for PAP supplies including mask, tube, filters. 8. Watching and losing weight. 9. Follow up visit in 6 months or earlier if patient has any problems. Thank you very much for allowing me to participate in the management of your patient. Guy Krueger MD, PhD, FAASM. Diplomat of [place] [employer] Medicine, Sleep Medicine Board by [place] [employer] Medicine Hand Candle Dipper of [facility] [place]
== END ==
LOC: 3 N SLEEP 14:11
PROVIDERS: ATTEND Internal Medicine
DX: G47.33 Obstructive sleep apnea (adult) (pediatric) (principal); E66.9 Obesity, unspecified; E78.5 Hyperlipidemia, unspecified; I10 Essential (primary) hypertension; F12.90 Cannabis use, unspecified, uncomplicated; Z68.36 Body mass index [BMI] 36.0-36.9, adult; Z90.49 Acquired absence of other specified parts of digestive tract; Z96.659 Presence of unspecified artificial knee joint; Z99.89 Dependence on other enabling machines and devices; Z88.5 Allergy status to narcotic agent; Z79.899 Other long term (current) drug therapy
CPT/HCPCS: 99212

== ENCOUNTER → 2024-06-01 | Outpatient (CLI) | payer MEDICARE ==
[2024-06-01 19:35] LABS: Basophils # (A) 0.03 X 10*3/uL (0.00-0.10); Basophils % (A) 0.3 %; Eosinophils # (A) 0.13 X 10*3/uL (0.04-0.35); Eosinophils % (A) 1.5 %; HGB 14.6 g/dL (12.0-15.0); Lymphocytes # (A) 1.58 X 10*3/uL (0.90-5.00); Lymphocytes % (A) 17.9 %; MCH 29.7 pg (27.0-32.0); MCHC 32.4 g/dL (32.0-37.0); MCV 91.6 FL (80.0-97.0); Mean Platelet Volume 10.5 FL (9.5-12.2); Monocytes # (A) 0.66 X 10*3/uL (0.20-1.00); Monocytes % (A) 7.5 %; NRBC Per 100 WBC 0 X 10*3/uL (0.00-0.01); Neutrophils # (A) 6.38 X 10*3/uL (1.80-7.70); Neutrophils % (A) 72.5 %; Platelet Count 286 X 10*3/uL (140-440); RBC 4.91 X 10*6/uL (4.10-5.20); RDW 14.1 % (11.5-14.5); WBC 8.81 X 10*3/uL (4.50-10.00)
[2024-06-01 20:53] LABS: ALT 26 U/L (8-44); AST 30 U/L (13-35); Albumin 4.6 g/dL (3.8-4.9); Albumin/Globulin Ratio 1.53 Ratio (1.60-3.17); Alkaline Phosphatase 68 U/L (41-126); BUN/Creat Ratio 21.12 Ratio (12.00-20.00); Blood Urea Nitrogen 16.9 mg/dL (9.0-27.0); Calcium 9.9 mg/dL (8.7-10.3); Chloride 100 mmol/L (96-109); Glucose 109 mg/dL (70-110); Potassium 4.1 mmol/L (3.5-5.5); Sodium 139 mmol/L (135-145); Total Protein 7.6 g/dL (6.2-8.2)
== END | disposition home or self-care (01) ==
LOC: LABWHC1 13:12
PROVIDERS: ATTEND Internal Medicine Gastroenterology
DX: K76.0 Fatty (change of) liver, not elsewhere classified (principal)
CPT/HCPCS: 36415; 80053; 85025

== ENCOUNTER → 2024-08-18 | Outpatient (CLI) | payer MEDICARE ==
[2024-08-18 14:37] VITALS: BP 115/65; PULSE 65; RESP 16; TEMP 98.6
--- NOTE | 2024-08-18 15:24 | P.PROGSL ---
Subjective DATE: 08/18/2024 FOLLOW UP VISIT. Patient with obstructive sleep apnea hypopnea syndrome return to sleep center for follow-up visit. Information from previous visit have been reviewed. Patient is using PAP equipment every night for the whole night, getting PAP supplies in time. The patient does not have significant problems with the mask, PAP unit and humidification. [place] sleepiness scale is 7, which is normal. I checked information from PAP unit. PAP unit pressure 8-14, average 11.5 cm H2O. Usage is 100% for more then 4 hours, average 8 hours per night. Leak is 5.6 l/m, which is in normal range. Apnea Hypopnea Index is 3.1, which is normal. MEDICATIONS have been reviewed, please see below. During physical exam: GENERAL: A pleasant patient without any distress. VITAL SIGNS: Please see below, weight is 233.0 lbs. HEENT: PERRLA, EOMI.low position of soft palate, Mallapati 4 . NECK: Supple. No JVD. LUNGS: Clear to percussion and to auscultation. Good air exchange. No wheezing or rhonchi. HEART: S1, S2 regular. ABDOMEN: Soft and nontender. Slightly obese EXTREMITIES: No clubbing or cyanosis. ALMOND HULLER: Awake, alert, and oriented x3. No focal deficit. Impressions: 1. Obstructive sleep apnea-hypopnea syndrome. Patient demonstrated great compliance with treatment, benefiting from treatment. 2. Obesity, BMI 38.1, patient increased her weight on 12 pounds comparing with previous visit. 3. Hypertension. 4. Hyperlipidemia. 5. Status post cholecystectomy. 6. Status post knee replacement. Plan: 1. Continue using PAP equipment every night for the whole night. 2. Sleep hygiene with regular time in bed for at least 7.5-8 hours 3. PAP unit should stay lower then position of the head. 4. Advised patient to remove all remaining water from humidifier canister daily and make it dry after each usage. Refill canister with fresh distilled water before each usage. 5. Watching and losing weight. 6. Precautions related to driving. No driving if feel any sleepiness. 7. I will maintain prescription for PAP supplies including mask, tube, filters. 8. Follow up visit in 8 months or earlier if patient has any problems. Thank you very much for allowing me to participate in the management of your patient. Guy Krueger MD, PhD, FAASM. Diplomat of [place] Board of Sleep Medicine, Sleep Medicine Board by [place] Board of Internal Medicine Prop Sawyer of [facility] [place] Objective - Vital Signs Vital Signs: Vital Signs Temp 98.6 F 08/18/24 14:35 Pulse 65 08/18/24 14:35 Resp 16 08/18/24 14:35 BP 115/65 08/18/24 14:35 Pulse Ox 97 08/18/24 14:35 FiO2 Home Medications: Home Medications Medication Instructions Recorded Confirmed Type Lisinopril-Hctz 10-12.5 mg 1 tab PO BID 07/31/20 08/18/24 History [Zestoretic 10-12.5] Metoprolol Tartrate [Lopressor] 50 mg PO BID 07/31/20 08/18/24 History Rosuvastatin [Crestor] 10 mg PO DAILY 08/18/24 08/18/24 History
== END ==
LOC: 3 N SLEEP 14:09
PROVIDERS: ATTEND Internal Medicine
CPT/HCPCS: 99212

== ENCOUNTER → 2025-03-10 | Outpatient (CLI) | payer MEDICARE ==
--- NOTE | 2025-03-11 07:38 | MM ---
Reason for Exam: Screening (asymptomatic). Last mammogram was performed 1 year(s) and 7 month(s) ago. Patient History: Menarche at age 13. First Full-Term at age 22. Postmenopausal. Risk Values: Rhianna 5 year model risk: 1.5%. NCI Lifetime model risk: 5.0%. Prior Study Comparison: 11/13/2015 Bilateral Screening Mammogram, [facility]. 01/04/2022 Bilateral Screening Mammogram, [facility]. 08/12/2023 Bilateral MG 3D screening mammo w/cad, [facility]. Tissue Density: There are scattered areas of fibroglandular density. Findings: Analyzed By CAD. There is no suspicious group of microcalcifications or new suspicious mass in either breast. Overall Assessment: Negative, BI-RAD 1 Management: Screening Mammogram of both breasts in 1 year. . Patient should continue monthly self-breast exams. A clinical breast exam by your physician is recommended on an annual basis. This exam should not preclude additional follow-up of suspicious palpable abnormalities. Note on Rhianna scores and lifetime risk: 1. A Rhianna score greater than 3% is considered moderate risk. If this is the case, consider specialist referral to assess eligibility for a risk reducing agent. 2. If overall lifetime risk for the development of breast cancer is 20% or higher, the patient may qualify for future screening with alternating mammogram and breast MRI. [facility], , 03/11/2025 7:35 AM. Electronically signed and approved by: Santi Sanches M.D. Radiologis
== END | disposition home or self-care (01) ==
LOC: RADMAMWWP 15:15
PROVIDERS: ATTEND Family Medicine
DX: Z12.31 Encounter for screening mammogram for malignant neoplasm of breast (principal); R92.323 Mammographic fibroglandular density, bilateral breasts; Z78.0 Asymptomatic menopausal state
CPT/HCPCS: 77063; 77067

== ENCOUNTER → 2025-05-04 | Outpatient (CLI) | payer MEDICARE ==
[2025-05-04 15:34] VITALS: BP 128/76; PULSE 65; RESP 18; TEMP 98
--- NOTE | 2025-05-04 16:01 | P.PROGSL ---
Subjective DATE: 05/04/2025 FOLLOW UP VISIT. Patient with obstructive sleep apnea hypopnea syndrome return to sleep center for follow-up visit. Information from previous visit have been reviewed. Patient is using PAP equipment every night for the whole night, getting PAP supplies in time. The patient does not have significant problems with the mask, PAP unit and humidification. [place] sleepiness scale is 4, which is normal. I checked information from PAP unit. PAP unit pressure 8-14, average 11.5 cm H2O. Usage is 100% for more then 4 hours, average 7.6 hours per night. Leak is 0.6 l/m, which is in perfect range. Apnea Hypopnea Index is 2.4, which is normal. MEDICATIONS have been reviewed, please see below. During physical exam: GENERAL: A pleasant patient without any distress. VITAL SIGNS: Please see below, weight is 253.4 lbs. HEENT: PERRLA, EOMI.low position of soft palate, Mallapati 4 . NECK: Supple. No JVD. LUNGS: Clear to percussion and to auscultation. Good air exchange. No wheezing or rhonchi. HEART: S1, S2 regular. ABDOMEN: Soft and nontender.[] EXTREMITIES: No clubbing or cyanosis. SCIENTIFIC LABORATORY SUPERVISOR: Awake, alert, and oriented x3. No focal deficit. Impressions: 1. Obstructive sleep apnea-hypopnea syndrome. Patient demonstrated great compliance with treatment, benefiting from treatment. 2. Obesity, BMI 38.1, no significant changes of weight since previous visit. 3. Hypertension. 4. Hyperlipidemia. 5. Status post right knee replacement. 6. Status post cholecystectomy. Plan: 1. Continue using PAP equipment every night for the whole night. 2. Sleep hygiene with regular time in bed for at least 7.5-8 hours 3. PAP unit should stay lower then position of the head. 4. Advised patient to remove all remaining water from humidifier canister daily and make it dry after each usage. Refill canister with fresh distilled water before each usage. 5. Watching and losing weight. 6. Precautions related to driving. No driving if feel any sleepiness. 7. I will maintain prescription for PAP supplies including mask, tube, filters. 8. Follow up visit in 8 months or earlier if patient has any problems. Thank you very much for allowing me to participate in the management of your patient. Guy Krueger MD, PhD, FAASM. Diplomat of [place] [employer] Sleep Medicine, Sleep Medicine Board by [place] [employer] Medicine Plan Coordinator of [facility] [place] Objective - Vital Signs Vital Signs: Vital Signs Temp 98.0 F 05/04/25 15:33 Pulse 65 05/04/25 15:33 Resp 18 05/04/25 15:33 BP 128/76 05/04/25 15:33 Pulse Ox 98 05/04/25 15:33 FiO2 Intake & Output 05/03/25 05/04/25 05/04/25 18:59 06:59 18:59 Weight 105.8 kg Home Medications: Home Medications Medication Instructions Recorded Confirmed Type Lisinopril-Hctz 10-12.5 mg 1 tab PO BID 07/31/20 05/04/25 History [Zestoretic 10-12.5] Metoprolol Tartrate [Lopressor] 50 mg PO BID 07/31/20 05/04/25 History Rosuvastatin [Crestor] 10 mg PO DAILY 08/18/24 05/04/25 History Omeprazole 20 mg PO DIRECTED PRN 05/04/25 05/04/25 History
== END ==
LOC: 3 N SLEEP 15:02
PROVIDERS: ATTEND Internal Medicine
DX: G47.33 Obstructive sleep apnea (adult) (pediatric) (principal); E66.9 Obesity, unspecified; I10 Essential (primary) hypertension; E78.5 Hyperlipidemia, unspecified; F12.90 Cannabis use, unspecified, uncomplicated; Z68.38 Body mass index [BMI] 38.0-38.9, adult; Z99.89 Dependence on other enabling machines and devices; Z96.651 Presence of right artificial knee joint; Z96.698 Presence of other orthopedic joint implants; Z90.49 Acquired absence of other specified parts of digestive tract; Z88.5 Allergy status to narcotic agent
CPT/HCPCS: 99212